=== PATIENT | male | born 1970 | race Two or more races ===

== ENCOUNTER 2024-03-03 11:28 | Emergency (ER) | payer OTHER ==
[~2024-03-03] VITALS: Ht 185.4 cm; Wt 101.5 kg
[~2024-03-03 11:28] MED LIST: ACET1CAP14 PO; BACDST PO; CEPH-510 PO
[2024-03-03 14:00] VITALS: BP 149/70; PULSE 80; RESP 18; TEMP 98; O2SAT 94
[2024-03-03] MEDS ORDERED: PROM1SOL4 PO (14:31)
[2024-03-03] MEDS ORDERED: AUG875T PO (14:31)
[2024-03-03] MEDS ORDERED: BENZ100C97 PO (14:31)
== END 2024-03-03 14:42 | disposition home or self-care (01) ==
LOC: ER 11:28
DX: J40 Bronchitis, not specified as acute or chronic (principal); E11.9 Type 2 diabetes mellitus without complications

== ENCOUNTER 2024-08-09 12:43 | Emergency (ER) | payer OTHER ==
[~2024-08-09] VITALS: Ht 185.4 cm; Wt 99.8 kg
[~2024-08-09 12:43] MED LIST changes: +AUG875T PO; +BENZ100C97 PO; +PROM1SOL4 PO
[2024-08-09 14:59] LABS: Basophils # (auto) 0.1 10 ^3/uL (0-0.2); Basophils % (auto) 0.8 % (0.0-2.0); Chloride 100 mmol/L (98-107); Eosinophils # (auto) 0.1 10 ^3/uL (0-0.8); Eosinophils % (auto) 0.8 % (0.0-7.0); Hematocrit 41.3 % (41.0-53.0); Hemoglobin 14.4 g/dL (13.5-17.5); Lymphocytes # (auto) 2.3 10 ^3/uL (0.4-5.4); Lymphocytes % (auto) 19.6 % (10.0-50.0); Mean Corpuscular Hemoglobin 32.1 pg (28.0-32.0); Mean Corpuscular Hgb Conc. 34.8 g/dL (32.0-36.0); Mean Corpuscular Volume 92.3 fL (80.0-100.0); Monocytes # (auto) 0.8 10 ^3/uL (0-1.3); Neutrophils # (auto) 8.3 10 ^3/uL (1.6-8.6); Neutrophils % (auto) 71.8 % (37.0-80.0); Nucleated Red Blood Cells % 0.1 %; Platelet Count (auto) 261 10^3/uL (140-450); Potassium 4.1 mmol/L (3.5-5.1); Red Blood Cells 4.47 10^6/uL (4.5-5.90); Red Cell Distribution Width 12.8 % (11.8-14.3); Sodium 132 mmol/L (136-145); White Blood Cell 11.5 10^3/uL (4.4-10.8)
[2024-08-09 15:00] LABS: Anion Gap 2 (5-15); Calcium 10.4 mg/dL (8.7-10.4); Carbon Dioxide 30 mmol/L (20-31)
[2024-08-09 15:05] LABS: Blood Urea Nitrogen 15 mg/dL (9-23); Glucose 353 mg/dL (74-106)
[2024-08-09] MEDS: SODIUM CHLORIDE 0.9% 1,000 ML IV ONE (15:18)
[2024-08-09 15:22] VITALS: TEMP 98
[2024-08-09] MEDS: InsuLIN REG 1unit/0.01ml Soln (100units/ml) IV ONE (15:39)
[2024-08-09] MEDS: cefTRIAXone 1GM/50ML D5W 50 ML IV ONE (15:39)
[2024-08-09] MEDS ORDERED: CEPH500C PO (16:32)
[2024-08-09] MEDS ORDERED: METF-370 PO (16:32)
[2024-08-09 16:42] VITALS: BP 140/90; PULSE 80; RESP 18; O2SAT 99
== END 2024-08-09 16:49 | disposition home or self-care (01) ==
LOC: ER 12:43
DX: E11.65 Type 2 diabetes mellitus with hyperglycemia (principal); L84 Corns and callosities; Z48.00 Encounter for change or removal of nonsurgical wound dressing; Z90.49 Acquired absence of other specified parts of digestive tract; Z79.899 Other long term (current) drug therapy
CPT/HCPCS: 36415; 80048; 82962; 85025; 96365; 96375; 99284; J0696; J1815

== ENCOUNTER 2024-12-02 08:15 | Inpatient (IN) | payer OTHER, MEDICARE, MEDICAID ==
[~2024-12-02] VITALS: Ht 185.4 cm; Wt 100.4 kg
[~2024-12-02 08:15] MED LIST changes: +CEPH500C PO; +METF-370 PO
--- NOTE | 2024-12-02 08:37 | ED.PDOC ---
Musculoskeletal HPI Comments 54 year old male presents to the ED with chief complaint of right foot redness and swelling. Patient reports that he has been experiencing increasing redness, swelling, and pain to the right foot for the past 2-3 days. Patient relays that he has history of DM and has neuropathy in both feet, believing he must have stepped on a thorn without noticing it while walking barefoot outside. Patient denies any fever, chills, discharge, or leg pain. Chief Complaint: Lower Extremity Time Seen by MD: 08:33 Primary Care Provider: LEXX Reviewed Notes: Nurses Notes, Medications, Allergies Allergies: Coded Allergies: NO KNOWN ALLERGIES (Unverified , 02/04/23) Home Meds Active Scripts Cephalexin Monohydrate (Cephalexin) 500 Mg Cap, 1 CAP PO QID, #40 CAP Prov:JACKIE LENZ 08/09/24 Metformin Hydrochloride (Metformin Hcl) 500 Mg Tab, 1 TAB PO BID, #30 TAB Prov:JACKIE LENZ 08/09/24 Promethazine-Dm (Promethazine Dm 6.25-15 mg/5Ml) 1 Yamilet Yamilet, 5 ML PO TIDPRN PRN for 10 Days, #150 ML 0 Refills Prov:JOSE LÓPEZ [employer] HEAR[employer] MELTER 03/03/24 Benzonatate (Benzonatate) 100 Mg Cap, 1 CAP PO TID, #30 CAP 0 Refills Prov:JOSE LÓPEZ [employer]AR[employer] MELTER 03/03/24 Amoxicillin & Pot Clavulanate (AUGMENTIN TABLET) 875 Mg Tb, 875 MG PO BID for 5 Days, #10 TAB 0 Refills Prov:JOSE LÓPEZ [employer] HEAR[employer] MELTER 03/03/24 Acetaminophen (Tylenol) 325 Mg Cap, 325 MG PO Q4HPRN PRN, #30 CAP 0 Refills Take 1-2 caps po q4h prn for pain (Do not exceed 3,000mg of acetaminophen in 24 hours) Prov:EBENEZER INIGUEZP 02/04/23 Sulfamethoxazole W/Trimethopri (Bactrim Ds Tablet) 1 Tab Tb, 1 TAB PO BID for 10 Days, #20 TAB 0 Refills Prov:EBENEZER INIGUEZP 02/04/23 Cephalexin ( Keflex 500) 500 Mg Cap, 1 CAP PO QID for 10 Days, #40 CAP 0 Refills Prov:EBENEZER INIGUEZ DIRECTOR VOICE 02/04/23 Information Source: Patient Mode of Arrival: Ambulatory Location: Right Extremity Location: Foot Timing: Days Prehospital treatment: None Severity: Moderate Able to Move Extremity: Yes Bear Weight: Fully Pain: Moderate Mechanism: Unknown Circumstances: Preceding Wound Onset of Symptoms: After Trauma Symptoms: Swelling, Pain, Erythema, Warmth DVT Risk Factors: NONE Last Tetanus: Unknown Associated signs and symptoms: Swelling, Foot pain Past Medical History PAST MEDICAL HISTORY: DM Surgical History: Appendectomy Family History Family History: Reviewed,noncontributory to illness Social History Smoker: Non-Smoker Alcohol: Occasionally Drugs: Denies Drug Use Lives In: Home Constitutional: denies: chills, diaphoresis, fatigue, fever, malaise, sweats, weakness, others EENTM: denies: blurred vision, double vision, ear bleeding, ear discharge, ear drainage, ear pain, ear ringing, eye pain, eye redness, hearing loss, mouth pain, mouth swelling, nasal discharge, nose bleeding, nose congestion, nose pain, photophobia, tearing, throat pain, throat swelling, voice changes, others Respiratory: denies: cough, hemoptysis, orthopnea, SOB at rest, shortness of breath, SOB with excertion, stridor, wheezing, others Cardiovascular: denies: chest pain, dizzy spells, diaphoresis, Dyspnea on exertion, edema, irregular heart beat, left arm pain, lightheadedness, palpitations, PND, syncope, others Gastrointestinal: denies: abdomen distended, abdominal pain, blood streaked bowels, constipated, diarrhea, dysphagia, difficulty swallowing, hematemesis, melena, nausea, poor appetite, poor fluid intake, rectal bleeding, rectal pain, vomiting, others Genitourinary: denies: burning, dysuria, flank pain, frequency, hematuria, incontinence, penile discharge, penile sore, pain, testicle pain, testicle swelling, urgency, others Neurological: denies: dizziness, fainting, headache, left sided numbness, left sided weakness, numbness, paresthesia, pre-existing deficit, right sided numbness, right sided weakness, seizure, speech problems, tingling, tremors, weakness, others Musculoskeletal: denies: back pain, gout, joint pain, joint swelling, muscle pain, muscle stiffness, neck pain, others Integumetry: reports: wounds (Redness, swelling, and warmth to right foot); denies: bruises, change in color, change in hair/nails, dryness, laceration, lesions, lumps, rash, others Allergic/Immunocompromised: denies: Difficulty Healing, Frequent Infections, Hives, Itching, others Hematologic/Lymphatic: denies: anemia, blood clots, easy bleeding, easy bruising, swollen glands, others Endocrine: denies: excessive hunger, excessive sweating, excessive thirst, excessive urination, flushing, intolerance to cold, intolerance to heat, unexplained weight gain, unexplained weight loss, others Psychiatric: denies: anxiety, bipolar disorder, depression, hopeless, panic disorder, schizophrenia, sleepless, suicidal, others All Other Systems: Reviewed and Negative Physical Exam General Appearance: Moderate Distress, Normal HEENT: Normal ENT Inspection, PERRL/EOMI Neck: Full Range of Motion, Non-Tender, Normal, Normal Inspection Respiratory: Chest Non-Tender, Lungs Clear, No Accessory Muscle Use, No Respiratory Distress, Normal Breath Sounds Cardiovascular: No Edema, No JVD, No Murmur, No Gallop, Normal Peripheral Pulses, Regular Rate/Rhythm Breast Exam: Deferred Gastrointestinal: No Organomegaly, Non Tender, No Pulsatile Mass, Normal Bowel Sounds, Soft Genitalia: Deferred Pelvic: Deferred Rectal: Deferred Extremities: No calf tenderness, Normal capillary refill, Normal inspection, Normal range of motion, Non-tender, No pedal edema Musculoskeletal : Apperance: Normal Neurologic: Alert, pipe stripper II-XII nml as Tested, No Motor Deficits, Normal Affect, Normal Mood, No Sensory Deficits Cerebellar Function: Normal Reflexes: Normal Skin: Dry, Normal Color, Warm, Wounds (Right foot redness with punctate wound sole) Peripheral Pulses: 3+ Radial (R), 3+ Radial (L) Lymphatic: No Adenopathy Was a procedure done? Was a procedure done?: No Differential Diagnosis EXT Differential Diagnosis: Cellulitis X-Ray, Labs, Meds, VS Vital Signs Date Time Temp Pulse Resp B/P (MAP) Pulse Ox O2 Delivery O2 Flow Rate FiO2 12/02/24 08:29 98.0 78 18 139/79 (99) 97 Patient alert. Complaining of stepping on a foreign object with his right foot. Vitals stable. Answering all questions. On examination there is swelling of the right foot along with redness. History of diabetes. Establish intravenous access. Was given fluids. Was given Zosyn. Reviewed his history. Explained to the patient. Continue cardiac monitoring. Time of 1ST Reevaluation: 09:33 Reevaluation 1ST: Unchanged Patient Education/Counseling: Diagnosis, Treatment Family Education/Counseling: No Family Present Additional Information I reviewed the following notes from patient's past medical encounters: The following tests were ordered, and results were reviewed by me: (Labs, XY, EKG) Additional Information was gathered from interviewing the following independent historians: (Family, Other Providers, EMT) I reviewed and agreed with the following test results read by other providers: (X-Ray, CT, US) I discussed treatment and results with medical personnel and: (Consultants, Family) Departure 1 Departure Time of Disposition: 09:00 Impression: Primary Impression: Uncontrolled diabetes mellitus Qualified Codes: E13.65 - Other specified diabetes mellitus with hyperglycemia Additional Impression: Cellulitis Qualified Codes: L03.115 - Cellulitis of right lower limb Disposition: ADMITTED INPATIENT Admit to: Med Surg Condition: Guarded Critical Care Note Critical Care Time?: No Stability Stability form required: No Heart Score Heart Score: Heart Score Response (Comments) Value History N/A 0 EKG N/A 0 Age N/A 0 Risk Factors N/A 0 Troponin N/A 0 Total 0 I personally scribed for JEANMARIE GEORGE MD ([email or web address]) on 12/02/24 at 08:36. Electronically submitted by Josh Benito ([email or web address]). JEANMARIE GEORGE MD Dec 02, 2024 08:36
[2024-12-02] MEDS: PIPERACILLIN-TAZOB 3.375GM 100 ML IV ONE (09:05)
[2024-12-02] MEDS: SODIUM CHLORIDE 0.9% 1,000 ML IV ONE (09:09)
[2024-12-02 09:36] LABS: Basophils # (auto) 0.1 10 ^3/uL (0-0.2); Basophils % (auto) 0.6 % (0.0-2.0); Eosinophils # (auto) 0.1 10 ^3/uL (0-0.8); Hematocrit 41.6 % (41.0-53.0); Lymphocytes # (auto) 2.9 10 ^3/uL (0.4-5.4); Lymphocytes % (auto) 21.2 % (10.0-50.0); Mean Corpuscular Hemoglobin 30.7 pg (28.0-32.0); Mean Corpuscular Hgb Conc. 33.7 g/dL (32.0-36.0); Monocytes % (auto) 7.5 % (0.0-12.0); Neutrophils # (auto) 9.4 10 ^3/uL (1.6-8.6); Neutrophils % (auto) 69.7 % (37.0-80.0); Platelet Count (auto) 263 10^3/uL (140-450); Red Blood Cells 4.57 10^6/uL (4.5-5.90); White Blood Cell 13.5 10^3/uL (4.4-10.8)
[2024-12-02 09:55] LABS: Anion Gap 6 (5-15); Carbon Dioxide 28 mmol/L (20-31); Chloride 102 mmol/L (98-107); Sodium 136 mmol/L (136-145)
[2024-12-02 10:01] LABS: Blood Urea Nitrogen 12 mg/dL (9-23)
[2024-12-02 10:12] LABS: Calcium 10.7 mg/dL (8.7-10.4); Glucose 298 mg/dL (74-106)
--- NOTE | 2024-12-02 12:01 | DVH ---
RIGHT LOWER EXTREMITY VENOUS DOPPLER CLINICAL HISTORY: pain and swelling TECHNIQUE: Right lower extremity venous doppler study was performed. COMPARISON: None FINDINGS: The right common femoral, superficial femoral, popliteal, posterior tibial veins appear patent with normal augmentation, phasicity, compressibility and color-flow. . IMPRESSION: 1. No sonographic evidence of DVT in the right leg. HS:Y
[2024-12-02] MEDS ORDERED: DEXTROSE (50%) 50ML SYRG IV PRN (12:30)
[2024-12-02] MEDS ORDERED: ONDANSETRON HCL 4 MG/2 ML VIAL IV PRN (12:30)
[2024-12-02] MEDS ORDERED: ACETAMINOPHEN 325 MG TAB PO PRN (12:30)
[2024-12-02] MEDS ORDERED: MORPHINE SULFATE INJ 2 MG/ml SYRG IV PRN (12:30)
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
--- NOTE | 2024-12-02 13:24 | DVH ---
CLINICAL INFORMATION: 54 years old, Male; pain and swelling. TECHNIQUE: Axial CT images of the right lower extremity from the level of the right hip the foot were obtained without IV contrast. Coronal and sagittal reformatted images were obtained, reviewed, and s tored. All CT scans at this medical facility are performed using dose modulation techniques as pati ropriate to a performed exam including the following: Automated exposure control was utilized; adjust ment of the MA and/or KV according to patient size; and use of iterative reconstruction technique. CTDIvol = 12.19 mGy DLP = 1328.36 mGy-cm COMPARISON: None FINDINGS: No acute fracture. Mild joint space narrowing in the right hip. Mild arthritic changes of t he right knee. Prominent right inguinal lymph nodes measuring up to 1.9 x 1.6 cm. Distal right diving instructor al iliac lymph node measures up to 1.4 x 2.0 cm. There is mild subcutaneous edema throughout the righ t leg, slightly greater in the right lower leg and right foot, which is nonspecific, may be seen with chronic venous stasis changes, although cellulitis not excluded in the appropriate clinical setting. There are moderate to marked fatty changes in the posterior compartment musculature of the distal as pect of the right lower leg, likely due to atrophy. Dense arterial calcification throughout the right leg. No organized fluid collection or mass visualized in the soft tissues of the right lower extremi ty. Bilateral fat containing indirect inguinal hernias also noted. IMPRESSION: 1. Nonspecific mild subcutaneous edema in the right lower extremity is nonspecific, may be seen with chronic venous stasis changes. Cellulitis not excluded in the appropriate clinical setting. 2. No organized fluid collection or mass identified. 3. Enlarged right inguinal and external iliac lymph nodes, may be reactive. Correlate with clinical f indings. Other etiologies, including lymphoma or metastatic disease can not be excluded in the [facility] clinical setting. 4. Additional findings as detailed above.
[2024-12-02] MEDS ORDERED: VANCOMYCIN PER PHARMACY 0 MG IV SCH (13:30)
[2024-12-02] MEDS ORDERED: PIPERACILLIN-TAZOB 3.375GM 100 ML IV SCH (14:00)
[2024-12-02] MEDS: PIPERACILLIN-TAZOB 3.375GM 100 ML IV SCH (14:08)
[2024-12-02 15:20] VITALS: BP 129/69; PULSE 78; RESP 18; TEMP 98.4; O2SAT 99
[2024-12-02] MEDS: InsuLIN REG 1unit/0.01ml Soln (100units/ml) SC SCH (17:00)
[2024-12-02] MEDS: ACCU-CHEK COMFORT CURVE STRIP VI SCH (17:25)
[2024-12-02 17:55] VITALS: PULSE 79; RESP 18; O2SAT 98
[2024-12-02] MEDS: VANCOMYCIN 1.75GM/350ML 350 ML IV ONE (20:20)
[2024-12-02 23:09] LABS: Urine Bacteria None Seen /hpf (None Seen)
[2024-12-02 23:35] VITALS: BP 138/78; PULSE 75; RESP 16; TEMP 99.2; O2SAT 95
[2024-12-03] VITALS (7 sets, daily range): BP systolic 110–159; BP diastolic 61–92; PULSE 67–79; RESP 16–20; TEMP 79–99.4; O2SAT 94–98
[2024-12-03 00:01] LABS: Urine Blood TRACE /uL (Negative); Urine Clarity Clear (Clear); Urine Color Light-Yellow (Yellow); Urine Protein, UAD TRACE (Negative); Urine Specific Gravity 1.023 (1.001-1.035); Urine Squamous Epithelial Cell FEW /hpf (<5); Urine Urobilinogen Normal (Negative); Urine WBC 6 /HPF (0-3); Urine pH 5.5 (5.0-9.0)
[2024-12-03 08:30] LABS: Basophils # (auto) 0.1 10 ^3/uL (0-0.2); Basophils % (auto) 0.5 % (0.0-2.0); Eosinophils # (auto) 0.2 10 ^3/uL (0-0.8); Eosinophils % (auto) 1.4 % (0.0-7.0); Hematocrit 37.6 % (41.0-53.0); Hemoglobin 12.8 g/dL (13.5-17.5); Lymphocytes # (auto) 2.6 10 ^3/uL (0.4-5.4); Lymphocytes % (auto) 22.5 % (10.0-50.0); Mean Corpuscular Hemoglobin 30.9 pg (28.0-32.0); Mean Corpuscular Hgb Conc. 34.1 g/dL (32.0-36.0); Mean Corpuscular Volume 90.6 fL (80.0-100.0); Monocytes # (auto) 0.9 10 ^3/uL (0-1.3); Neutrophils # (auto) 7.8 10 ^3/uL (1.6-8.6); Neutrophils % (auto) 67.6 % (37.0-80.0); Nucleated Red Blood Cells % 0.1 %; Platelet Count (auto) 215 10^3/uL (140-450); Red Blood Cells 4.15 10^6/uL (4.5-5.90); White Blood Cell 11.5 10^3/uL (4.4-10.8)
[2024-12-03 08:35] LABS: Albumin 3.5 g/dL (3.2-4.8); Alkaline Phosphatase 50 U/L (46-116); Anion Gap 4 (5-15); BUN/Creatinine Ratio 10.9 (10.0-20.0); Blood Urea Nitrogen 11 mg/dL (9-23); Calcium 9.9 mg/dL (8.7-10.4); Carbon Dioxide 29 mmol/L (20-31); Chloride 104 mmol/L (98-107); Sodium 137 mmol/L (136-145)
[2024-12-03 08:36] LABS: Bilirubin, Total 0.7 mg/dL (0.2-1.0); Total Protein 6.3 g/dL (5.7-8.2)
[2024-12-03 08:38] LABS: Alanine Aminotransferase < 9 U/L (7-40); Aspartate Aminotransferase < 8 U/L (13-40); Glucose 129 mg/dL (74-106)
[2024-12-03] MEDS: ENOXAPARIN SOD 40 MG/0.4 ML SYRINGE SC SCH (08:51)
[2024-12-03] MEDS: VANCOMYCIN 1.5GM/300ML 300 ML IV SCH (11:40)
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
[2024-12-03] MEDS: HYDROcodone-ACET 5/325MG TAB PO PRN (17:05)
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
--- NOTE | 2024-12-03 20:06 | DVH ---
EXAMINATION: MRI MRI R FOOT WO CONTRAST TECHNIQUE: MRI of the right foot was performed. Multisequence multiplanar images were obtained with out intravenous contrast administration. HISTORY: R/O OSTIO VRS ABCESS COMPARISON: CT dated 12/02/2024 FINDINGS/IMPRESSION: Diffuse subcutaneous soft-tissue edema and swelling. This likely represent cellulitis. No discrete fluid collection or abscess. No bone marrow edema to suggest acute osteomyelitis at this time.
[2024-12-04] VITALS (7 sets, daily range): BP systolic 95–136; BP diastolic 64–78; PULSE 66–77; RESP 17–20; TEMP 97.6–98.6; O2SAT 95–96
[2024-12-04 07:40] LABS: Basophils # (auto) 0.1 10 ^3/uL (0-0.2); Basophils % (auto) 0.5 % (0.0-2.0); Eosinophils # (auto) 0.2 10 ^3/uL (0-0.8); Eosinophils % (auto) 1.9 % (0.0-7.0); Hematocrit 35.8 % (41.0-53.0); Hemoglobin 12.3 g/dL (13.5-17.5); Lymphocytes # (auto) 2.2 10 ^3/uL (0.4-5.4); Lymphocytes % (auto) 22.6 % (10.0-50.0); Mean Corpuscular Hemoglobin 31.3 pg (28.0-32.0); Mean Corpuscular Hgb Conc. 34.3 g/dL (32.0-36.0); Mean Corpuscular Volume 91.3 fL (80.0-100.0); Monocytes # (auto) 0.8 10 ^3/uL (0-1.3); Monocytes % (auto) 7.9 % (0.0-12.0); Neutrophils # (auto) 6.6 10 ^3/uL (1.6-8.6); Neutrophils % (auto) 67.1 % (37.0-80.0); Platelet Count (auto) 221 10^3/uL (140-450); Red Blood Cells 3.93 10^6/uL (4.5-5.90); Red Cell Distribution Width 12.9 % (11.8-14.3); White Blood Cell 9.9 10^3/uL (4.4-10.8)
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
[2024-12-04] MEDS: PIPERACILLIN-TAZOB 3.375GM 100 ML IV SCH (22:00)
[2024-12-05] VITALS (7 sets, daily range): BP systolic 117–135; BP diastolic 66–75; PULSE 68–74; RESP 16–18; TEMP 97.8–98.5; O2SAT 95–100
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
[2024-12-06] VITALS (7 sets, daily range): BP systolic 114–128; BP diastolic 68–80; PULSE 66–81; RESP 17–20; TEMP 97.4–98.2; O2SAT 93–95
[2024-12-07 04:55] VITALS: BP 137/49; PULSE 84; RESP 17; TEMP 97.9; O2SAT 98
[2024-12-07 08:00] VITALS: PULSE 81; RESP 17
[2024-12-07 08:42] VITALS: BP 122/73; PULSE 51; RESP 16; TEMP 98.8; O2SAT 94
[2024-12-07 13:06] VITALS: BP 122/75; PULSE 74; RESP 17; TEMP 98.2; O2SAT 92
[2024-12-07] MEDS ORDERED: LEVO500T91 PO (16:28)
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
[2024-12-07 16:45] VITALS: BP 124/69; PULSE 72; RESP 16; TEMP 98.6; O2SAT 94
[2024-12-07 18:11] VITALS: BP 122/75; PULSE 74; RESP 17; TEMP 98.2; O2SAT 92
== END 2024-12-07 19:10 | disposition home or self-care (01) | DRG 638 ==
LOC: ER 08:15 → OVERFLOW 12:26 → WEST WING 22:54
PROVIDERS: ADMIT Internal Medicine; ATTEND Internal Medicine
DX: E11.69 Type 2 diabetes mellitus with other specified complication (principal); L03.115 Cellulitis of right lower limb; M86.8X7 Other osteomyelitis, ankle and foot; E11.621 Type 2 diabetes mellitus with foot ulcer; E11.40 Type 2 diabetes mellitus with diabetic neuropathy, unspecified; Z83.3 Family history of diabetes mellitus; Z90.49 Acquired absence of other specified parts of digestive tract; Z82.49 Family history of ischemic heart disease and other diseases of the circulatory system
CPT/HCPCS: 36415; 73700; 73718; 80048; 80053; 80202; 81001; 82565; 82962; 83036; 83605; 85025; 87040; 87086; 87205; 93971; 96365; 96366; 96367; 96372; G0378; J1815; J2543

== ENCOUNTER 2025-08-21 09:33 | Emergency (ER) | payer OTHER, MEDICAID ==
[~2025-08-21] VITALS: Ht 185.4 cm; Wt 97.3 kg
[~2025-08-21 09:33] MED LIST changes: +LEVO500T91 PO
[2025-08-21 09:35] VITALS: BP 148/79; PULSE 86; RESP 18; TEMP 98.2; O2SAT 95
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
--- NOTE | 2025-08-21 11:21 | DVH ---
EXAMINATION: XY L RIB X RAY INDICATION: Pain; FALL COMPARISON: None TECHNIQUE: Frontal view of the chest and 4 views of the left ribs history FINDINGS: No focal consolidation, pleural effusion or significant pneumothorax. Normal cardiomediastinal silhou ette. No displaced left rib fracture. IMPRESSION: No acute cardiopulmonary disease. No displaced left rib fracture.
== END 2025-08-21 12:29 | disposition home or self-care (01) ==
LOC: ER 09:33
DX: S29.011A Strain of muscle and tendon of front wall of thorax, initial encounter (principal); F10.90 Alcohol use, unspecified, uncomplicated; E11.9 Type 2 diabetes mellitus without complications; Z90.49 Acquired absence of other specified parts of digestive tract; Z79.84 Long term (current) use of oral hypoglycemic drugs; Z79.899 Other long term (current) drug therapy; W19.XXXA Unspecified fall, initial encounter; Y93.89 Activity, other specified; Y92.89 Other specified places as the place of occurrence of the external cause; Y99.8 Other external cause status; Y90.9 Presence of alcohol in blood, level not specified
CPT/HCPCS: 71101